=== PATIENT | male | born 2000 | race Caucasian/White ===

== ENCOUNTER 2018-03-05 20:02 | Emergency (ER) | payer SELFPAY ==
[2018-03-05 20:13] VITALS: BP 136/79; PULSE 68; TEMP 98.2; O2SAT 99
--- NOTE | 2018-03-05 21:53 | C.PDOC ---
History Of Present Illness 17 year old male presents to the ED for evaluation of left hip pain which has been intermittent for around 2 weeks. Patient states his pain worsened while lifting heavy boxes at work earlier today. Patient notes his job often requires similar physical labor. He denies back pain, urinary/bowel incontinence, extremity numbness/weakness or direct trauma/injury to the site. Time Seen by Provider: 03/05/18 20:17 Chief Complaint (Nursing): Hip Pain History Per: Patient History/Exam Limitations: no limitations Onset/Duration Of Symptoms: Hrs, Other (2 weeks ) Current Symptoms Are (Timing): Worse Additional History Per: Patient Past Medical History Reviewed: Historical Data, Nursing Documentation, Vital Signs Vital Signs: Last Vital Signs Temp 98.2 F 03/05/18 20:09 Pulse 68 03/05/18 20:09 Resp 20 03/05/18 22:33 BP 136/79 03/05/18 20:09 Pulse Ox 99 03/05/18 22:24 - Medical History PMH: Diabetes Surgical History: Tonsillectomy Family History: States: Unknown Family Hx - Social History Hx Tobacco Use: No Hx Alcohol Use: Yes Hx Substance Use: No - Immunization History Hx Tetanus Toxoid Vaccination: No Hx Influenza Vaccination: No Hx Pneumococcal Vaccination: No Review Of Systems Genitourinary: Negative for: Incontinence Musculoskeletal: Positive for: Other (left hip pain ). Negative for: Back Pain Neurological: Negative for: Weakness, Numbness Physical Exam - Physical Exam Appears: Non-toxic, No Acute Distress Skin: Normal Color, Warm, Dry, No Ecchymosis Head: Atraumatic, Normacephalic Eye(s): bilateral: Normal Inspection Neck: Normal ROM, No Midline Cervical Tenderness, No Paracervical Tenderness Back: Normal Inspection, No Vertebral Tenderness, No Paraspinal Tenderness Extremity: Normal ROM (left lower extremity), Tenderness (to lateral aspect of left hip ), Capillary Refill (less than 2 seconds ), No Deformity, No Swelling Neurological/Psych: Oriented x3, Normal Speech, Normal Cognition Gait: Steady ED Course And Treatment O2 Sat by Pulse Oximetry: 99 (on RA) Pulse Ox Interpretation: Normal Progress Note: Left hip XR ordered, results are unremarkable. Motrin PO administered. On re-examination, patient is resting comfortably, showing no signs of distress and reports an improvement in his symptoms. Patient is ambulatory in the ED without distress and is stable for discharge. Patient is advised to follow up with orthopedic care within 1-2 days for further evaluation and/or return to the ED if symptoms persist or worsen. Reassessment Condition: Improved Disposition - Disposition Referrals: [facility] [Outside] [facility] [place] [Outside] Disposition: HOME/ ROUTINE Disposition Time: 22:13 Condition: STABLE Additional Instructions: Follow up with PMD/Clinic within 2-3 days. Return to ED if feel worse. Prescriptions: Cyclobenzaprine [Cyclobenzaprine HCl] 10 mg PO TID #15 tab Naproxen [Naprosyn] 1 tab PO BID PRN #25 tab PRN Reason: Pain Instructions: Hip Pain (DC) Forms: [facility] (B[place]an), Work Excuse - Clinical Impression Clinical Impression: Hip pain - PA / HOSPICE MANAGER / Resident Statement MD/DO has reviewed & agrees with the documentation as recorded. - Scribe Statement The provider has reviewed the documentation as recorded by the Scribe (Angelica Orellana) All medical record entries made by the Scribe were at my direction and personally dictated by me. I have reviewed the chart and agree that the record accurately reflects my personal performance of the history, physical exam, medical decision making, and the department course for this patient. I have also personally directed, reviewed, and agree with the discharge instructions and disposition.
[2018-03-05 22:34] VITALS: RESP 20
--- NOTE | 2018-03-06 10:57 | RAD ---
PROCEDURE: Left Hip with Pelvis X-ray Radiographs. HISTORY: pain COMPARISON: None. FINDINGS: BONES: No acute fracture or destructive bony lesion identified. JOINTS: No subluxation or dislocation identified. Sacroiliac and bilateral hip joints appear grossly nonfocal. There is no dislocation of the left hip joint. Symphysis pubis appears intact. SOFT TISSUES: Normal. OTHER FINDINGS: None. IMPRESSION: No acute fracture dislocation of the pelvic ring or the left hip joint.
== END 2018-03-05 22:33 | disposition home or self-care (01) ==
LOC: C.ER 20:02
DX: M25.552 Pain in left hip (principal)